=== PATIENT | male | born 1945 | race Caucasian/White ===

== ENCOUNTER → 2018-10-03 13:49 | Outpatient (CLI) | payer SELFPAY ==
[2018-10-03 14:57] LABS: PSA,Total- Diagnostic 9.35 ng/mL (0.0-4.0)
== END ==
PROVIDERS: Family Provider Family Medicine; PCP Family Medicine; Referring Provider Nurse Practitioner Adult Health; Visit Provider Nurse Practitioner Adult Health
DX: R97.20 Elevated prostate specific antigen [PSA] (principal)
CPT/HCPCS: 36415; 84153